=== PATIENT | male | born 1990 | race Caucasian/White ===

== ENCOUNTER 2020-08-07 23:33 | Emergency (ER) | payer OTHER ==
[~2020-08-07] VITALS: Ht 172.7 cm; Wt 67.0 kg
[2020-08-07 23:35] VITALS: BP 127/56
== END 2020-08-08 00:03 | disposition home or self-care (01) ==
LOC: ED 23:57
DX: S03.01XA Dislocation of jaw, right side, initial encounter (principal); F17.200 Nicotine dependence, unspecified, uncomplicated; X58.XXXA Exposure to other specified factors, initial encounter; Y93.89 Activity, other specified; Y92.89 Other specified places as the place of occurrence of the external cause; Y99.8 Other external cause status
CPT/HCPCS: 21480; 99284